=== PATIENT | female | born 1955 | race Hispanic/Latino ===

== ENCOUNTER 2025-05-31 13:22 | Observation (INO) | payer OTHER, MEDICAID ==
[~2025-05-31] VITALS: Ht 152.4 cm; Wt 77.4 kg
--- NOTE | 2025-05-31 13:42 | EKG ---
[facility] Test Date: 2025-05-31 Test Time: 13:34:49 Pat Name: JOJO MASTERS Department: EDH Room: ED Gender: F Vamp Creaser: [id number] Requested By: LAZ BALTAZAR Order Number: [id number] Reading MD: Amanuel Charles Measurements Intervals [place] Rate: 90 P: 11 ME: 127 QRS: 19 QRSD: 150 T: 27 QT: 400 QTc: 489 Interpretive Statements Sinus rhythm Right bundle branch block No previous ECG available for comparison Electronically Signed On 05-31-2025 16:33:40 EDGE WORKER by Amanuel Charles Please click the below link to view image of tracing.
[2025-05-31 13:50] LABS: IMMATURE GRANULOCYTE ABSOLUTE 0.02 K/uL (0-1); NUCLEATED RED BLOOD CELLS 0.0 % (0.0-0.19); PLATELET COUNT (AUTO) 426 K/uL (130-400); RED BLOOD CELL COUNT(AUTO) 5.27 MIL/uL (4.00-5.50); RED CELL DISTRIBUTION WIDTH 13.1 % (11.0-15.5); WHITE BLOOD COUNT (AUTO) 9.1 K/uL (4.8-10.8)
[2025-05-31 13:53] LABS: APPEARANCE,URINE CLEAR (CLEAR); GLUCOSE, URINE (UA) >=1000 mg/dL (NEGATIVE); LEUKOCYTE ESTERASE ,URINE 250 Leu/uL (NEGATIVE); NITRATE,URINE NEGATIVE (NEGATIVE); OCCULT BLOOD,URINE NEGATIVE (NEGATIVE)
[2025-05-31 13:56] LABS: ADD UA MICROSCOPIC YES
[2025-05-31 13:57] LABS: CREATININE 1.1 mg/dL (0.5-1.0); GLOMERULAR FILTR. RATE CALC 54.0 mL/min (>90); GLUCOSE,RANDOM 159.0 mg/dL (70-105); SODIUM SERUM 134.0 mmol/L (136-145); UREA NITROGEN, BLOOD 20.0 mg/dL (7-18)
[2025-05-31 13:58] LABS: NON-SQUAMOUS EPITHELIAL CELL 2 /HPF (0-2); SQUAMOUS EPITHELIAL CELL,UR FEW /HPF (0-2)
[2025-05-31 14:01] LABS: INR 0.97 (0.85-1.15)
[2025-05-31 14:02] LABS: CREATINE KINASE, TOTAL 52.0 U/L (21-232)
[2025-05-31 14:09] LABS: SARS-CoV-2, RNA, NAAT NEGATIVE SARS CoV-2 (NEGATIVE)
[2025-05-31 14:15] LABS: INFLUENZA TYPE A Negative For Type A (NEGATIVE); INFLUENZA TYPE B Negative For Type B (NEGATIVE)
--- NOTE | 2025-05-31 15:37 | ERN ---
General Chief Complaint: Shortness of Breath Stated Complaint: SOB Time Seen by MD: 13:24 Source: patient, family History of Present Illness Initial Comments PATIENT IS A 70-YEAR-OLD FEMALE COMING IN WITH MULTIPLE COMPLAINTS. PER PATIENT SHE HAS BEEN FEELING GENERALIZED BODY WEAKNESS CHEST PRESSURE SHORTNESS OF BREATH AND FEELS VERY ANXIOUS. PER FAMILY MEMBERS AT BEDSIDE THIS IS AN ONGOING EVENT WHICH HAS BEEN GOING ON FOR SEVERAL YEARS. IN THE LAST COUPLE OF DAYS SHE HAS FELT EVEN WORSE. Allergies: Coded Allergies: No Known Drug Allergies (Unverified Allergy, Unknown, 05/31/25) Past Medical History Past Medical History: Depression, Diabetes-Type II, High Cholesterol, Hypertension Past Surgical History: Appendectomy, Cholecystectomy ROS Dictation CONSTITUTIONAL: NO CHILLS, NO FEVER, NO WEAKNESS, NO DIAPHORESIS, NO MALAISE. HEAD/FACE: NO SIGNS OF TRAUMA. EENT: NO EYE PAIN, NO BLURRED VISION, NO TEARING, NO DOUBLE VISION, NO EAR PAIN, NO EAR DISCHARGE, NO NOSE PAIN, NO NASAL CONGESTION, NO THROAT PAIN, NO THROAT SWELLING, NO MOUTH PAIN. RESPIRATORY: NO COUGH, NO ORTHOPNEA, SOB, NO STRIDOR, NO WHEEZING. CARDIOVASCULAR: CHEST PAIN, NO EDEMA, NO PALPITATIONS, NO SYNCOPE. GASTROINTESTINAL/ABDOMINAL: NO ABDOMINAL PAIN, NO CONSTIPATION, NO DIARRHEA, NO NAUSEA, NO VOMITING. GENITOURINARY: NO ABNORMAL DISCHARGE, NO DYSURIA, NO FREQUENT URINATION, NO HEMATURIA. NO COMPLAINTS OF PAIN IN THE GENITALS. MUSCULOSKELETAL: NO BACK PAIN, NO GOUT, NO JOINT PAIN, NO JOINT SWELLING, NO MUSCLE PAIN, NO MUSCLE STIFFNESS, NO NECK PAIN. INTEGUMENTARY: NO CHANGE IN COLOR, NO CHANGE IN HAIR/NAILS, NO DRYNESS, NO LESION, NO LUMPS, NO RASH. NEUROLOGICAL/PSYCH: NO ANXIETY, NOT DEPRESSED, NO EMOTIONAL PROBLEM, NO HEADACHE, NO NUMBNESS, NO PRE-EXISTING DEFICIT, NO HISTORY OF SEIZURES, NO TREMORS, NO WEAKNESS. HEMATOLOGIC/LYMPHATIC: NOT ANEMIC, NO HISTORY OF BLOOD CLOTS, NO APPARENT BLEEDING, NO BRUISING, GLANDS NOT SWOLLEN. ALL SYSTEMS NEGATIVE, EXCEPT NOTED. Physical Exam Physical Exam Dictation VITAL SIGNS: REVIEWED. GENERAL APPEARANCE: ALERT, ORIENTED X3, ACUTE DISTRESS, OBESE. HEAD AND FACE: NON-TRAUMATIC. EYES: PERRL, PINK CONJUNCTIVAS, EYELID NO TRAUMA, ANTERIOR CHAMBER CLEAR. EARS: PINNAS INTACT AND NO SIGNS OF TRAUMA OR ERYTHEMA. EAR CANALS CLEAR AND NO DISCHARGE. TMS NO ERYTHEMA. NOSE: NO DISCHARGE, NO BLEEDING. OROPHARYNX: MOUTH NORMAL, TEETH NO CARIES, TONGUE PINK. PHARYNX CLEAR, NO ERYTHEMA. TONSILS NO EXUDATES, NO ABSCESSES NOTED. MUCOUS MEMBRANE MOIST. NECK: SUPPLE, NON-TENDER, NO THYROMEGALY, NO MASSES, NO JVD, NO BRUITS. BREAST: DEFERRED. CHEST: NO TENDERNESS, NO CREPITUS, NO PARADOXICAL MOVEMENT, NO RETRACTIONS. LUNGS: CLEAR, WELL-VENTILATED, SYMMETRIC, NO RALES, NO WHEEZING, NO RHONCHI, NO STRIDOR, GOOD BREATH SOUNDS BILATERALLY. HEART: REGULAR RATE, REGULAR RHYTHM, NO MURMUR, NO GALLOPS. VASCULAR: NO PERIPHERAL EDEMA. ABDOMEN: SOFT, POSITIVE BOWEL SOUNDS, NONDISTENDED, NO GUARDING, NONTENDER, NO REBOUND, NO MASSES NO HEPATOMEGALY, NO SPLENOMEGALY, NO MICHELLE'S SIGN, NO HERNIAS. RECTAL: DEFERRED. GENITAL: DEFERRED. NEUROLOGICAL: NORMAL SPEECH, GROSS MOTOR FUNCTION INTACT, GROSS SENSORY FUNCTION INTACT. MUSCULOSKELETAL: NECK NONTENDER, FULL RANGE OF MOTION, BACK NONTENDER, FULL RANGE OF MOTION. EXTREMITIES: NONTENDER, FULL RANGE OF MOTION. SKIN: COLOR PINK, DRY, NO TURGOR, NO RASH, NO LACERATIONS, NO ABRASIONS, NO CONTUSIONS. LYMPHATICS: DEFERRED. Results Laboratory and Microbiology Lab and Micro Result Laboratory Tests Test 05/31/25 13:33 05/31/25 13:39 Influenza Type A Antigen Negative For Type A Influenza Type B Antigen Negative For Type B SARS-CoV-2, RNA, NAAT NEGATIVE SARS CoV-2 White Blood Count 9.1 K/uL (4.8-10.8) Red Blood Count 5.27 MIL/uL (4.00-5.50) Hemoglobin 15.5 g/dL (12.0-16.0) Hematocrit 45.9 % (36-48) Mean Corpuscular Volume 87.1 fL (79-99) Mean Corpuscular Hemoglobin 29.4 pg (27.0-33.0) Mean Corpuscular Hemoglobin Concent 33.8 g/dL (32.0-36.0) Red Cell Distribution Width 13.1 % (11.0-15.5) Platelet Count 426 K/uL (130-400) H Mean Platelet Volume 9.5 fL (7.5-10.5) Immature Granulocyte % (Auto) 0.2 % (0-1) Neutrophils (%) (Auto) 58.8 % (40.0-77.0) Lymphocytes (%) (Auto) 31.9 % (21.0-51.0) Monocytes (%) (Auto) 6.8 % (3.0-13.0) Eosinophils (%) (Auto) 1.5 % (0.0-8.0) Basophils (%) (Auto) 0.8 % (0.0-5.0) Neutrophils # (Auto) 5.3 K/uL (1.8-7.7) Lymphocytes # (Auto) 2.9 K/uL (1.0-4.8) Monocytes # (Auto) 0.6 K/uL (0.1-1.0) Eosinophils # (Auto) 0.14 K/uL (0.00-0.70) Basophils # (Auto) 0.07 K/uL (0.00-0.20) Absolute Immature Granulocyte (auto 0.02 K/uL (0-1) Nucleated Red Blood Cells 0.0 % (0.0-0.19) Prothrombin Time 10.3 SEC (9.6-11.6) Prothromb Time International Ratio 0.97 (0.85-1.15) Activated Partial Thromboplast Time 26.9 SEC (26.3-35.5) Urine Color LIGHT-YELLOW (YELLOW) Urine Appearance CLEAR (CLEAR) Urine pH 5.5 (5.0-8.0) Urine Specific [place] 1.017 (1.001-1.031) Urine Protein NEGATIVE mg/dL (NEGATIVE) Urine Glucose (UA) >=1000 mg/dL (NEGATIVE) H Urine Ketones 40 mg/dL (NEGATIVE) H Urine Occult Blood NEGATIVE (NEGATIVE) Urine Nitrate NEGATIVE (NEGATIVE) Urine Bilirubin NEGATIVE mg/dL (NEGATIVE) Urine Urobilinogen 0.2 mg/dL (0.2-1.0) Urine Leukocyte Esterase 250 Keegan/uL (NEGATIVE) H Urine RBC 6-10 /HPF (0-1) H Urine WBC 11-25 /HPF (0-1) H Urine Squamous Epithelial Cells FEW /HPF (0-2) Urine Non-Squamous Epithelial Cells 2 /HPF (0-2) Urine Bacteria None /HPF (None Seen) Sodium Level 134 mmol/L (136-145) L Potassium Level 3.9 mmol/L (3.5-5.1) Chloride Level 97 mmol/L (101-111) L Carbon Dioxide Level 19 mmol/L (21-32) L Blood Urea Nitrogen 20 mg/dL (7-18) H Creatinine 1.1 mg/dL (0.5-1.0) H Glomerular Filtration Rate Calc 54 mL/min (>90) Random Glucose 159 mg/dL (70-105) H Total Calcium 8.9 mg/dL (8.5-10.1) Magnesium Level 1.90 mg/dL (1.80-2.40) Total Creatine Kinase 52 U/L (21-232) Troponin I High Sensitivity 11 ng/L (4-50) B-Type Natriuretic Peptide 34 pg/mL (0-100) Labs Reviewed?: Yes EKG/XRAY/US/CT/MRI EKG Comment 05/31/2025 TIME 1:34 P.M. VENTRICULAR RATE [address] WAVE ELEVATION OR DEPRESSION MDM MDM: DIFFERENTIAL DIAGNOSIS: URINARY TRACT INFECTION, ANXIETY, DEHYDRATION, DREA, RATIONALE: TESTS CONSIDERED AND ORDERED SECONDARY TO SHARED DECISION MAKING INCLUDE: LABS, ECG AND RADIOLOGY PREVIOUS OUTSIDE RECORDS REVIEWED: OLD ER VISITS. RISK OF COMPLICATION AND/OR MORBIDITY OR MORTALITY OF PATIENT MANAGEMENT: NONE MEDICATIONS-PER MEDICATION RECONCILIATION NEED FOR HOSPITALIZATION: PATIENT DOES MEET CRITERIA FOR HOSPITALIZATION. NEED FOR EMERGENCY MAJOR/MINOR SURGERY: NO THERE ARE NO SOCIAL CONCERNS WITH THIS PATIENT. PRESCRIPTION DRUG MANAGEMENT PRESCRIPTIONS WILL INCLUDE SYMPTOMATIC CARE PATIENT'S PRIOR EXTERNAL MEDICAL RECORDS FROM OTHER ER VISITS WERE REVIEWED BY ME INDICATED. PRIOR TESTING AND RESULTS FROM PREVIOUS VISITS WERE REVIEWED. PRIOR TESTS WERE TAKEN INTO ACCOUNT WITH MEDICAL DECISION MAKING AND RESOURCE UTILIZATION, INDEPENDENT HISTORIAN/HISTORIANS WERE USED TO OBTAIN COMPLETE MEDICAL HISTORY. I INDEPENDENTLY INTERPRETED THE TEST THAT WERE PERFORMED, RESULTS WERE REVIEWED BY ME AND CONSIDERED FINDINGS ON RADIOLOGY IF ORDERED. MEDICAL MANAGEMENT AND EXAMINATION INTERPRETATION DISCUSSIONS WERE HAD BY ME WITH OTHER QUALIFIED HEALTHCARE PROFESSIONALS INDICATED FOR THE PATIENT'S CARE. PATIENT WILL BE ADMITTED UNDER THE CARE OF HOSPITALIST GROUP FOR ONGOING MANAGEMENT. ED Course Orders Procedure Category Date Status Time Cbc With Differential LAB 05/31/25 Complete 13:27 Prothrombin Time With LAB 05/31/25 Complete INR 13:27 Chest 1vw RAD 05/31/25 Resulted 13:27 12 Lead Ekg Tracing- EKG 05/31/25 Complete Technical 13:27 Magnesium LAB 05/31/25 Complete 13:27 Creatine Kinase, Total LAB 05/31/25 Complete 13:27 Troponin I High LAB 05/31/25 Complete Sensitivity 13:27 Urinalysis Profile LAB 05/31/25 Complete 13:27 Partial LAB 05/31/25 Complete Thromboplastin Time 13:27 Basic Metabolic Panel LAB 05/31/25 Complete 13:27 B-Type Natriuretic LAB 05/31/25 Complete Peptide 13:27 Covid Rna Naat LAB 05/31/25 Complete 13:27 Influenza Type A & B, LAB 05/31/25 Complete Rapid 13:27 Culture Urine KOKI 05/31/25 In Process 13:57 Diazepam 5 Mg/Ml 2 Ml PHA 05/31/25 Complete Syg (Valium 5 Mg/M 14:30 Current Medications Medications (Trade) Dose Ordered Sig/Chapito Route PRN Reason Start Time Stop Time Status Last Admin Dose Admin Diazepam (VALium 5 MG/ML 2 ML SYG) 5 mg ONCE ONCE IM 05/31/25 14:30 05/31/25 14:31 DC 05/31/25 14:37 Vital Signs Date Time Temp Pulse Resp B/P (MAP) Pulse Ox O2 Delivery O2 Flow Rate FiO2 05/31/25 13:24 98.1 97 20 139/89 100 Room Air DX & DISP Disposition: Inpatient Decision to Admit Time: 15:49 Departure Impression: Primary Impression: UTI (urinary tract infection) Additional Impressions: Anxiety, Dehydration, DREA (acute kidney injury) Condition: Stable Referrals: HAYDE BERRIOS MD (PCP) LAZ BALTAZAR MD May 31, 2025 15:37
--- NOTE | 2025-05-31 15:43 | HMCIMG ---
EXAM: CR Chest, 1 View. CLINICAL HISTORY: CP COMPARISON: None provided. FINDINGS: LUNGS: The lungs show no infiltrate or other acute finding. PLEURAL SPACES: No evidence of pleural effusion or pneumothorax. MEDIASTINUM: The cardiomediastinal silhouette is within normal limits. BONES: No acute osseous abnormality. IMPRESSION: No acute cardiopulmonary pathology is evident. /[place]
[2025-05-31] MEDS ORDERED: GLUCAGON 1MG KIT 1 MG ML IM PRN (16:00)
[2025-05-31] MEDS ORDERED: DEXTROSE 50%-WATER 50 ML DISP.SYRIN IV PRN (16:00)
[2025-05-31] MEDS ORDERED: PoTASSium chl 10% ELIXIR 20MEQ 20 MEQ/15 ML UDCUP PO PRN (16:00)
--- NOTE | 2025-05-31 16:20 | HP ---
[facility] Date of Service: May 31, 2025 Time of Service: 16:13 PCP: Admitting: Dr. Vinson Allergies: No Allergy Information Available, No Known Drug Allergies HISTORY OF PRESENT ILLNESS: [ Patient 70 years old female with a past medical history of depression, diabetes, hyperlipidemia, hypertension, appendectomy, cholecystectomy, who came to emergency department with multiple patient stated that last couple of the ceiling week, overall generalized body weakness she also was complaining of some chest her shortness of breaths and feeling of anxious. Patient did stated that she is a history of the depression. As per family members who has been off the bedside they being seen that all her symptoms has been going for the past several years. Today patient decided to come to the hospital all dose symptoms has been progressively worse] Most recent vital signs temperature 98.1 pulse 97 respiration 20 blood pressure 139/89 patient is on room air satting 100%. Sodium 134 potassium 3.9 CO2 19 BUN 20 creatinine 1.1 GFR four random glucose 159 magnesium 1.9 CK 52 troponin negative x1 BNP 34 COVID negative. Influenza A negative influenza B negative urinalysis positive for leukocytosis Chest x-ray negative Patient will be admitted under hospitalist care for further evaluation/recommendations. A.m. Labs patient and family members at the bedside agree with the further plan and admission REVIEW OF SYSTEMS CONSTITUTIONAL: Denies fevers, chills, or night sweats. No unintentional weight loss reported. Complains of generalized body weakness NEUROLOGICAL: Denies headache, amaurosis fugax, motor weakness, sensory deficit, vertigo/spinning sensation, gait abnormalities, or tremors. ENT: No hearing loss, otalgia, otorrhea, rhinitis, rhinorrhea, hoarseness, or sore throat. CARDIOVASCULAR: Denies any exertional angina, dyspnea on exertion, orthopnea, paroxysmal nocturnal dyspnea, palpitations, life-threatening arrhythmias, claudication. Complains of chest pressure PULMONARY: Denies any cough, phlegm/sputum, hemoptysis, pleuritic chest pain. Complains of shortness of breaths SLEEP: Denies morning headaches, daytime somnolence or napping. Denies difficulty falling asleep, staying asleep, waking from sleep. Denies knowledge of snoring. GASTROINTESTINAL: Denies any type of dysphagia to either liquids or solids. Denies nausea, vomiting, pyrosis, early satiety, abdominal pain, diarrhea, constipation, or changes in stool consistency or caliber. Denies coffee-ground emesis, hematemesis, hematochezia, or melanotic stools. GENITOURINARY: Denies frequency, urgency, nocturia, hematuria or incontinence (Storage/Irritative symptoms.) Low urinary stream, straining to void, urinary intermittency or hesitancy, splitting of the voiding stream, terminal dribbling. ENDOCRINOLOGIC: Denies polyuria, polydipsia, polyphagia or heat/cold intolerances. HEMATOLOGIC: Denies thrombophilia/previous clots, or coagulopathy/bleeding disorders. ONCOLOGIC: Denies personal history of malignancy. DERMATOLOGIC: Denies rashes or pruritus. PSYCHIATRIC: Denies any suicidal or homicidal ideation. Denies hallucinations. PAST MEDICAL HISTORY: [ Depression, diabetes, hyperlipidemia, hypertension ] PAST SURGICAL HISTORY: [ Appendectomy, cholecystectomy ] PAST SOCIAL HISTORY: [ Patient denies any ] FAMILY HISTORY: [ Patient lives at home with the family members. Patient requires one-person assist for ambulation with a walker ] Coded Allergies: No Known Drug Allergies (Unverified Allergy, Unknown, 05/31/25) PHYSICAL EXAM GENERAL APPEARANCE: The patient is awake, alert, and oriented, in no acute cardiopulmonary distress. NEUROLOGICAL: Cranial nerves II-XII grossly intact. Motor is 5/5 in bilateral upper and lower extremities proximal to distal. No sensory deficits. HEENT: Face is symmetric. Pupils are equal and reactive. Extraocular movements are intact. NECK: Supple. No JVD. No thyromegaly. No submental, submandibular, pre- /postauricular, occipital or supraclavicular lymphadenopathy. CHEST: Normal chest expansion. No Telemetry. LUNGS: Absence of any rales, rhonchi or any wheezing. CARDIOVASCULAR: Regular. S1 and S2 normal. No appreciable rubs, murmurs or gallops. ABDOMEN: Soft, nontender, and nondistended. There is no rebound, voluntary guarding, or rigidity. : Deferred. No Garner. EXTREMITIES: Non-edematous and not cyanotic. No clubbing. Good capillary refill. SKIN: No skin breakdown. Vital Sign (Last 24 Hours) 05/31/25 16:05 Temp 97.9 Pulse 79 Resp 30 B/P (MAP) 179/87 Pulse Ox 100 O2 Delivery Room Air* O2 Flow Rate 0 FiO2 21 LABS: Laboratory: Test 05/31/25 13:39 05/31/25 13:33 Range/Units White Blood Count 9.1 4.8-10.8 K/uL Red Blood Count 5.27 4.00-5.50 MIL/uL Hemoglobin 15.5 12.0-16.0 g/dL Hematocrit 45.9 36-48 % Mean Corpuscular Volume 87.1 79-99 fL Mean Corpuscular Hemoglobin 29.4 27.0-33.0 pg Mean Corpuscular Hemoglobin Concent 33.8 32.0-36.0 g/dL Red Cell Distribution Width 13.1 11.0-15.5 % Platelet Count 426 H 130-400 K/uL Mean Platelet Volume 9.5 7.5-10.5 fL Immature Granulocyte % (Auto) 0.2 0-1 % Neutrophils (%) (Auto) 58.8 40.0-77.0 % Lymphocytes (%) (Auto) 31.9 21.0-51.0 % Monocytes (%) (Auto) 6.8 3.0-13.0 % Eosinophils (%) (Auto) 1.5 0.0-8.0 % Basophils (%) (Auto) 0.8 0.0-5.0 % Neutrophils # (Auto) 5.3 1.8-7.7 K/uL Lymphocytes # (Auto) 2.9 1.0-4.8 K/uL Monocytes # (Auto) 0.6 0.1-1.0 K/uL Eosinophils # (Auto) 0.14 0.00-0.70 K/uL Basophils # (Auto) 0.07 0.00-0.20 K/uL Absolute Immature Granulocyte (auto 0.02 0-1 K/uL Nucleated Red Blood Cells 0.0 0.0-0.19 % Prothrombin Time 10.3 9.6-11.6 SEC Prothromb Time International Ratio 0.97 0.85-1.15 Activated Partial Thromboplast Time 26.9 26.3-35.5 SEC Urine Color LIGHT-YELLOW YELLOW Urine Appearance CLEAR CLEAR Urine pH 5.5 5.0-8.0 Urine Specific [place] 1.017 1.001-1.031 Urine Protein NEGATIVE NEGATIVE mg/dL Urine Glucose (UA) >=1000 H NEGATIVE mg/dL Urine Ketones 40 H NEGATIVE mg/dL Urine Occult Blood NEGATIVE NEGATIVE Urine Nitrate NEGATIVE NEGATIVE Urine Bilirubin NEGATIVE NEGATIVE mg/dL Urine Urobilinogen 0.2 0.2-1.0 mg/dL Urine Leukocyte Esterase 250 H NEGATIVE Keegan/uL Urine RBC 6-10 H 0-1 /HPF Urine WBC 11-25 H 0-1 /HPF Urine Squamous Epithelial Cells FEW 0-2 /HPF Urine Non-Squamous Epithelial Cells 2 0-2 /HPF Urine Bacteria None None Seen /HPF Sodium Level 134 L 136-145 mmol/L Potassium Level 3.9 3.5-5.1 mmol/L Chloride Level 97 L 101-111 mmol/L Carbon Dioxide Level 19 L 21-32 mmol/L Blood Urea Nitrogen 20 H 7-18 mg/dL Creatinine 1.1 H 0.5-1.0 mg/dL Glomerular Filtration Rate Calc 54 >90 mL/min Random Glucose 159 H 70-105 mg/dL Total Calcium 8.9 8.5-10.1 mg/dL Magnesium Level 1.90 1.80-2.40 mg/dL Total Creatine Kinase 52 21-232 U/L Troponin I High Sensitivity 11 4-50 ng/L B-Type Natriuretic Peptide 34 0-100 pg/mL Influenza Type A Antigen Negative For Type A NEGATIVE Influenza Type B Antigen Negative For Type B NEGATIVE SARS-CoV-2, RNA, NAAT NEGATIVE SARS CoV-2 NEGATIVE Current Medications Medications (Trade) Dose Ordered Sig/Chapito Route PRN Reason Start Time Stop Time Status Last Admin Dose Admin Dextrose (D50w) 50 ml AD PRN IV HYPOGLYCEMIA PROTOCOL 05/31/25 16:00 06/30/25 15:59 Glucagon (Glucagon 1mg Kit) 1 mg AD PRN IM HYPOGLYCEMIA PROTOCOL 05/31/25 16:00 06/30/25 15:59 Insulin Human Regular (humuLIN R 100 UNIT/ML 3ML) INSULIN SLIDING SCAL... ACHS SQ 05/31/25 16:30 06/30/25 16:29 Magnesium Sulfate 50 ml @ 0 mls/hr PROTOCOL PRN IV other 05/31/25 16:00 06/30/25 15:59 Potassium Chloride 100 ml @ 100 mls/hr AD PRN IV POTASSIUM PROTOCOL 05/31/25 16:00 06/30/25 15:59 Potassium Chloride (K-Dur/Klor-Con 20meq) 20 meq AD PRN PO POTASSIUM PROTOCOL 05/31/25 16:00 06/30/25 15:59 Potassium Chloride (KCl 10% Elixir 20meq/15ml) 20 meq AD PRN PO POTASSIUM PROTOCOL 05/31/25 16:00 06/30/25 15:59 DIAGNOSTICS / RADIOLOGY: [ ] ASSESSMENT: [ Acute complicated cystitis POA Acute dehydration POA Acute kidney injury POA Electrolyte imbalance hyponatremia Na 134 POA Uncontrolled hypertension POA Uncontrolled diabetes mellitus type 2 with hypoglycemia POA Hyperlipidemia POA Depression POA History of appendectomy History of cholecystectomy] PLAN: [ Patient admitted to medical floor Chest x-ray pending Initiate hyper and hypoglycemia protocol Initiate hypokalemia protocol Initiate hypomagnesemia protocol Blood culture pending I's and o's pending PRN medications Rocephin 2 g for UTI Urine culture pending A.m. labs Cardiac diet PT for evaluation Case management for disposition ADVANCED CARE PLANNING 1. Which of the following were discussed? Hospice Care - Yes / No Therapeutic options - Yes / No Advance Directives - Yes / No Other discussions - 2. Discussed with who? Patient and family members 3. Voluntary nature of this service was explained to the patient? Yes / No 4. Amount of time spent - _ more than 35 minutes 5. Reviewed by Physician? (if this service was performed by NPP) Yes / No ATTESTATION BY PHYSICIAN I have seen and examined the patient. I reviewed the documentation, medical decision making, and treatment plan as noted by the mid-level provider above. I agree with the findings and plan of care. Jabier Vinson IV, MD, KATARZYNA B WOOL SACKER May 31, 2025 16:20
[2025-05-31] MEDS ORDERED: NITROGLYCERIN 0.4 MG SL TAB SL PRN (16:30)
[2025-05-31] MEDS ORDERED: MAG/ALUM/SIMETH 30 ML UDCUP PO PRN (16:30)
[2025-05-31] MEDS ORDERED: guaiFENesin-DM 200/20MG 10ML PO PRN (16:30)
[2025-05-31] MEDS ORDERED: FAMOTIDINE 20MG VIAL IV PRN (16:30)
[2025-05-31] MEDS: 0.9%NACL 1000ML 1,000 ML IV SCH (16:57)
[2025-05-31] MEDS ORDERED: OMEP20CA12 PO (17:46)
[2025-05-31] MEDS ORDERED: AMLO-257 PO (17:46)
[2025-05-31] MEDS ORDERED: ALPR-409 PO (17:46)
[2025-05-31] MEDS ORDERED: HYDR-3421 PO (17:46)
[2025-05-31] MEDS ORDERED: FINE20TA PO (17:46)
[2025-05-31] MEDS ORDERED: BUSP15TA3 PO (17:46)
[2025-05-31] MEDS ORDERED: LORA0.5T83 PO (17:46)
[2025-05-31] MEDS ORDERED: NITR100C PO (17:46)
[2025-05-31] MEDS ORDERED: GABA-534 PO (17:46)
[2025-05-31] MEDS ORDERED: LEVO25CA5 PO (17:46)
[2025-05-31] MEDS ORDERED: LOSA50TA64 PO (17:46)
[2025-05-31] MEDS ORDERED: EMPA25TA PO (17:46)
[2025-05-31] MEDS ORDERED: METO-391 PO (17:46)
[2025-05-31] MEDS ORDERED: CALC-1106 PO (17:46)
--- NOTE | 2025-05-31 17:59 | NUR ---
REPORT GIVEN TO CHARLOTTE FONTENOT, COLLEEN SENT WITH PATIENT
[2025-05-31 19:02] VITALS: BP 148/86; PULSE 86; RESP 20; TEMP 98.1
[2025-05-31 19:35] VITALS: BP 143/82; PULSE 76; RESP 20; TEMP 97.6
[2025-05-31 20:00] VITALS: O2SAT 100
[2025-05-31] MEDS: FAMOTIDINE 20MG VIAL IV SCH (21:50)
[2025-05-31 23:30] VITALS: BP 123/67; PULSE 91; RESP 19; TEMP 97.7
[2025-06-01] VITALS (9 sets, daily range): BP systolic 111–137; BP diastolic 61–89; PULSE 74–101; RESP 16–19; TEMP 97.8–98.4; O2SAT 0
[2025-06-01 03:49] LABS: IMMATURE GRANULOCYTE ABSOLUTE 0.02 K/uL (0-1); NUCLEATED RED BLOOD CELLS 0.0 % (0.0-0.19); PLATELET COUNT (AUTO) 291 K/uL (130-400); RED BLOOD CELL COUNT(AUTO) 4.46 MIL/uL (4.00-5.50); RED CELL DISTRIBUTION WIDTH 13.2 % (11.0-15.5); WHITE BLOOD COUNT (AUTO) 5.5 K/uL (4.8-10.8)
[2025-06-01 04:20] LABS: ASPARTATE AMINOTRANSFERASE 14 U/L (10-37); CREATINE KINASE, TOTAL 40 U/L (21-232); CREATININE 0.8 mg/dL (0.5-1.0); GLOMERULAR FILTR. RATE CALC 79 mL/min (>90); GLUCOSE,RANDOM 104 mg/dL (70-105); SODIUM SERUM 136 mmol/L (136-145); TOTAL PROTEIN, SERUM 6.5 g/dL (6.0-8.3); UREA NITROGEN, BLOOD 15 mg/dL (7-18)
--- NOTE | 2025-06-01 05:08 | HMCIMG ---
EXAM: CR Chest, single view. CLINICAL HISTORY: Congestion COMPARISON: Prior same-day chest radiograph. FINDINGS: The lungs show no infiltrate or other acute findings. No pleural effusion or pneumo horax. The cardiomediastinal silhouette is within normal limits. No acute osseous abnormality. Mild degenerative changes in the mid and lower thoracic spine. Mild tortuosity of the descending thoracic aorta. IMPRESSION: No acute cardiopulmonary pathology is evident. Compared to the prior study, there is no significant interval change. /[place]
[2025-06-01] MEDS: PoTASSium chloRIDE 20MEQ ER 20 MEQ ERTAB PO PRN (05:33)
[2025-06-01] MEDS: MAGNESIUM 2GM PREMIX 50ML 50 ML IV PRN (05:34)
[2025-06-01] MEDS ORDERED: ALPRAZOLAM 0.25 MG PO PRN (10:30)
--- NOTE | 2025-06-01 13:24 | PN ---
[facility] PROGRESS NOTE Date of Service: Jun 01, 2025 Time of Service: 13:22 SUBJECTIVE: 06/01 PATIENT IS SEEN AND EXAMINED AT BEDSIDE, CASE DISCUSSED WITH THE RN, NO ACUTE EVENTS OVERNIGHT, PATIENT GETTING SUPPORTIVE CARE WITH IV FLUIDS, IV ANTIBIOTICS AT THE TIME MY VISIT, BP 134/71, AFEBRILE, SATURATING NORMAL ON ROOM AIR. AT THE TIME OF THE MY VISIT SHE IS AWAKE, STATED THAT SHE FEELS WEAK, ALERT ORIENTED X3, DENIES CHEST PAIN, NO SHORTNESS A BREATH, NO NAUSEA, NO VOMITING, NO ABDOMINAL DISCOMFORT. WE WILL CONTINUE ANTIBIOTICS FOR ADDITIONAL 24 HOURS, ANTICIPATE DISCHARGE HOME TOMORROW. SON AT BEDSIDE, UPDATED, ALL QUESTIONS ANSWERED. IN AGREEMENT. REVIEW OF SYSTEMS CONSTITUTIONAL: Denies fevers, chills, or night sweats. No unintentional weight loss reported. Complains of generalized body weakness NEUROLOGICAL: Denies headache, amaurosis fugax, motor weakness, sensory deficit, vertigo/spinning sensation, gait abnormalities, or tremors. ENT: No hearing loss, otalgia, otorrhea, rhinitis, rhinorrhea, hoarseness, or sore throat. CARDIOVASCULAR: Denies any exertional angina, dyspnea on exertion, orthopnea, paroxysmal nocturnal dyspnea, palpitations, life-threatening arrhythmias, claudication. Complains of chest pressure PULMONARY: Denies any cough, phlegm/sputum, hemoptysis, pleuritic chest pain. Complains of shortness of breaths SLEEP: Denies morning headaches, daytime somnolence or napping. Denies difficulty falling asleep, staying asleep, waking from sleep. Denies knowledge of snoring. GASTROINTESTINAL: Denies any type of dysphagia to either liquids or solids. Denies nausea, vomiting, pyrosis, early satiety, abdominal pain, diarrhea, constipation, or changes in stool consistency or caliber. Denies coffee-ground emesis, hematemesis, hematochezia, or melanotic stools. GENITOURINARY: Denies frequency, urgency, nocturia, hematuria or incontinence (Storage/Irritative symptoms.) Low urinary stream, straining to void, urinary intermittency or hesitancy, splitting of the voiding stream, terminal dribbling. ENDOCRINOLOGIC: Denies polyuria, polydipsia, polyphagia or heat/cold intolerances. HEMATOLOGIC: Denies thrombophilia/previous clots, or coagulopathy/bleeding disorders. ONCOLOGIC: Denies personal history of malignancy. DERMATOLOGIC: Denies rashes or pruritus. PSYCHIATRIC: Denies any suicidal or homicidal ideation. Denies hallucinations. PHYSICAL EXAM GENERAL APPEARANCE: The patient is awake, alert, and oriented, in no acute cardiopulmonary distress. NEUROLOGICAL: Cranial nerves II-XII grossly intact. Motor is 5/5 in bilateral upper and lower extremities proximal to distal. No sensory deficits. HEENT: Face is symmetric. Pupils are equal and reactive. Extraocular movements are intact. NECK: Supple. No JVD. No thyromegaly. No submental, submandibular, pre- /postauricular, occipital or supraclavicular lymphadenopathy. CHEST: Normal chest expansion. No Telemetry. LUNGS: Absence of any rales, rhonchi or any wheezing. CARDIOVASCULAR: Regular. S1 and S2 normal. No appreciable rubs, murmurs or gallops. ABDOMEN: Soft, nontender, and nondistended. There is no rebound, voluntary guarding, or rigidity. : Deferred. No Garner. EXTREMITIES: Non-edematous and not cyanotic. No clubbing. Good capillary refill. SKIN: No skin breakdown. Vital Signs (last 8hr) Date Time Temp Pulse Resp B/P (MAP) Pulse Ox O2 Delivery O2 Flow Rate FiO2 06/01/25 13:08 98.2 95 16 124/71 97 Room Air 06/01/25 09:35 98.1 101 18 127/71 93 Room Air 06/01/25 08:06 98.1 101 18 127/71 Room Air 06/01/25 08:00 0 Room Air* 0 21 LABS: Laboratory: Test 06/01/25 11:36 06/01/25 03:27 05/31/25 13:39 05/31/25 13:33 Range/Units Whole Blood Glucose 131 H 70-110 MG/DL White Blood Count 5.5 # 4.8-10.8 K/uL Red Blood Count 4.46 4.00-5.50 MIL/uL Hemoglobin 13.2 12.0-16.0 g/dL Hematocrit 39.1 36-48 % Mean Corpuscular Volume 87.7 79-99 fL Mean Corpuscular Hemoglobin 29.6 27.0-33.0 pg Mean Corpuscular Hemoglobin Concent 33.8 32.0-36.0 g/dL Red Cell Distribution Width 13.2 11.0-15.5 % Platelet Count 291 # 130-400 K/uL Mean Platelet Volume 9.6 7.5-10.5 fL Immature Granulocyte % (Auto) 0.4 0-1 % Neutrophils (%) (Auto) 53.2 40.0-77.0 % Lymphocytes (%) (Auto) 31.2 21.0-51.0 % Monocytes (%) (Auto) 11.4 3.0-13.0 % Eosinophils (%) (Auto) 2.5 0.0-8.0 % Basophils (%) (Auto) 1.3 0.0-5.0 % Neutrophils # (Auto) 2.9 1.8-7.7 K/uL Lymphocytes # (Auto) 1.7 1.0-4.8 K/uL Monocytes # (Auto) 0.6 0.1-1.0 K/uL Eosinophils # (Auto) 0.14 0.00-0.70 K/uL Basophils # (Auto) 0.07 0.00-0.20 K/uL Absolute Immature Granulocyte (auto 0.02 0-1 K/uL Nucleated Red Blood Cells 0.0 0.0-0.19 % Sodium Level 136 136-145 mmol/L Potassium Level 3.8 3.5-5.1 mmol/L Chloride Level 104 101-111 mmol/L Carbon Dioxide Level 20 L 21-32 mmol/L Blood Urea Nitrogen 15 7-18 mg/dL Creatinine 0.8 0.5-1.0 mg/dL Glomerular Filtration Rate Calc 79 >90 mL/min Random Glucose 104 70-105 mg/dL Hemoglobin A1c 7.1 H 4.0-6.0 % Estimated Average Glucose (eAG) 157 H 70-126 mg/dL Lactic Acid Level 1.4 0.8-2.5 mmol/L Total Calcium 7.8 L 8.5-10.1 mg/dL Magnesium Level 1.80 1.80-2.40 mg/dL Total Bilirubin 0.3 0.2-1.0 mg/dL Direct Bilirubin 0.1 0.0-0.3 mg/dL Aspartate Amino Transf (AST/SGOT) 14 10-37 U/L Alanine Aminotransferase (ALT/SGPT) 14 12-78 U/L Alkaline Phosphatase 67 50-136 U/L Ammonia < 10 L 11-32 umol/L Total Creatine Kinase 40 # 21-232 U/L Troponin I High Sensitivity 14.7 4-50 ng/L B-Type Natriuretic Peptide 29 0-100 pg/mL Total Protein 6.5 6.0-8.3 g/dL Albumin 3.0 L 3.5-5.0 g/dL Amylase Level 22 L 25-115 U/L Lipase 17 16-77 U/L Procalcitonin < 0.05 L 0.05-0.5 ng/mL Thyroid Stimulating Hormone (TSH) 1.18 0.36-3.74 uIU/mL Free Thyroxine (T4) Direct 1.17 0.76-1.46 ng/dL Free Triiodothyronine (T3) pg/mL 1.98 L 2.18-3.98 pg/mL Prothrombin Time 10.3 9.6-11.6 SEC Prothromb Time International Ratio 0.97 0.85-1.15 Activated Partial Thromboplast Time 26.9 26.3-35.5 SEC Urine Color LIGHT-YELLOW YELLOW Urine Appearance CLEAR CLEAR Urine pH 5.5 5.0-8.0 Urine Specific Hurst 1.017 1.001-1.031 Urine Protein NEGATIVE NEGATIVE mg/dL Urine Glucose (UA) >=1000 H NEGATIVE mg/dL Urine Ketones 40 H NEGATIVE mg/dL Urine Occult Blood NEGATIVE NEGATIVE Urine Nitrate NEGATIVE NEGATIVE Urine Bilirubin NEGATIVE NEGATIVE mg/dL Urine Urobilinogen 0.2 0.2-1.0 mg/dL Urine Leukocyte Esterase 250 H NEGATIVE Keegan/uL Urine RBC 6-10 H 0-1 /HPF Urine WBC 11-25 H 0-1 /HPF Urine Squamous Epithelial Cells FEW 0-2 /HPF Urine Non-Squamous Epithelial Cells 2 0-2 /HPF Urine Bacteria None None Seen /HPF Influenza Type A Antigen Negative For Type A NEGATIVE Influenza Type B Antigen Negative For Type B NEGATIVE SARS-CoV-2, RNA, NAAT NEGATIVE SARS CoV-2 NEGATIVE Current Medications Medications (Trade) Dose Ordered Sig/Chapito Route PRN Reason Start Time Stop Time Status Last Admin Dose Admin Acetaminophen (TYLenol 325MG TAB) 650 mg Q4H PRN PO MILD PAIN (1-3) 05/31/25 16:30 06/30/25 16:29 Acetaminophen (TYLenol 325MG TAB) 650 mg Q6H PRN PO MILD PAIN (1-3) 05/31/25 16:30 05/31/25 16:15 DC Acetaminophen (TYLenol 325MG TAB) 650 mg Q6H PRN PO TEMPERATURE GREATER THAN 101.5 05/31/25 16:30 06/30/25 16:29 Al Hydroxide/Mg Hydroxide (MAALox PLUS 30ML) 30 ml Q6H PRN PO INDIGESTION 05/31/25 16:30 06/30/25 16:29 Amlodipine Besylate (NorvASC 5MG TAB) 5 mg DAILY PO 06/02/25 09:00 07/02/25 08:59 Buspirone HCl (BUspar) 15 mg TID PO 06/01/25 14:00 07/01/25 13:59 Ceftriaxone Sodium (Rocephin 2gm Inj) 2 gm Q24H IVPB 06/01/25 16:30 06/11/25 16:29 Dextrose (D50w) 50 ml AD PRN IV HYPOGLYCEMIA PROTOCOL 05/31/25 16:00 06/30/25 15:59 Diphenhydramine HCl (BENAdryl INJ) 25 mg Q6H PRN IV SEVERE ITCHING/RASH 05/31/25 16:30 06/30/25 16:29 Empaglifozin (Jardiance 25mg) 25 mg DAILY PO 06/02/25 09:00 07/02/25 08:59 Famotidine (Pepcid 20mg Vial) 20 mg BID PRN IV NAUSEA/VOMITING 05/31/25 16:30 05/31/25 16:15 DC Famotidine (Pepcid 20mg Vial) 20 mg Q24H IV 05/31/25 21:00 06/30/25 20:59 05/31/25 21:50 20 MG Gabapentin (NEURontin 300 MG CAP) 300 mg TID PO 06/01/25 14:00 07/01/25 13:59 Glucagon (Glucagon 1mg Kit) 1 mg AD PRN IM HYPOGLYCEMIA PROTOCOL 05/31/25 16:00 06/30/25 15:59 Guaifenesin/ Dextromethorphan (RobiTUSSin DM 200/20MG 10ML) 10 ml Q4H PRN PO COUGH 05/31/25 16:30 06/30/25 16:29 Heparin Sodium (Porcine) (HEParin 5,000 UNIT VIAL) 5,000 unit BID SQ 05/31/25 21:00 06/30/25 20:59 06/01/25 09:15 5,000 UNIT Home Med (Home Medication) DAILY PO 06/02/25 09:00 07/02/25 08:59 Home Med (Home Medication) DAILYBKFST PO 06/02/25 08:00 07/02/25 07:59 Hydralazine HCl (APRESOLine 20MG INJ) 10 mg Q6H PRN IV For:SBP above 160;DBP above 90 05/31/25 16:30 06/30/25 16:29 Hydroxyzine HCl (ATArax 25MG TAB) 25 mg TIDP PRN PO ANXIETY 06/01/25 10:30 07/01/25 10:29 Ibuprofen (moTRIN) 800 mg Q8H PRN PO MODERATE PAIN (4-6) 05/31/25 16:30 06/30/25 16:29 Insulin Human Regular (humuLIN R 100 UNIT/ML 3ML) INSULIN SLIDING SCAL... ACHS SQ 05/31/25 16:30 06/30/25 16:29 Ketorolac Tromethamine (toRADol) 15 mg Q8H PRN IV MODERATE PAIN (4-6) IF NPO 05/31/25 16:30 06/05/25 16:29 Lactulose (Constulose 20gm/ 30ml Udcup) 20 gm BID PRN PO CONSTIPATION 05/31/25 16:30 06/30/25 16:29 Levothyroxine Sodium (SYNTHroid 25MCG TAB) 25 mcg SYN PO 06/02/25 06:30 07/02/25 06:29 Lorazepam (AtiVAN) 0.5 mg [id number] PRN PO ANXIETY 06/01/25 10:30 07/01/25 10:29 Losartan Potassium (CozAAR 50 mg TAB) 50 mg DAILY PO 06/02/25 09:00 07/02/25 08:59 Magnesium Sulfate 50 ml @ 0 mls/hr PROTOCOL PRN IV other 05/31/25 16:00 06/30/25 15:59 06/01/25 05:34 25 MLS/HR Metoprolol Succinate (TopROL XL) 50 mg DAILY PO 06/02/25 09:00 07/02/25 08:59 Miscellaneous Medication (Alprazolam ) 0.25 mg TIDP PRN PO ANXIETY 06/01/25 10:30 06/01/25 10:59 DC Morphine Sulfate (morPHINE 2MG SYG) 1 mg Q4H PRN IVP SEVERE PAIN (7-10) IF NPO 05/31/25 16:30 06/07/25 16:29 Nitroglycerin (Nitrostat) 0.4 mg PROTOCOL PRN SL CHEST PAIN 05/31/25 16:30 06/30/25 16:29 Ondansetron HCl (zoFRAN 4MG INJ) 4 mg Q6H PRN IV NAUSEA/VOMITING 05/31/25 16:30 06/30/25 16:29 Oxycodone/ Acetaminophen (perCOCET) 1 tab Q6H PRN PO SEVERE PAIN (7-10) 05/31/25 16:30 06/07/25 16:29 06/01/25 09:12 1 TAB Potassium Chloride 100 ml @ 100 mls/hr AD PRN IV POTASSIUM PROTOCOL 05/31/25 16:00 06/30/25 15:59 Potassium Chloride (K-Dur/Klor-Con 20meq) 20 meq AD PRN PO POTASSIUM PROTOCOL 05/31/25 16:00 06/30/25 15:59 06/01/25 05:33 20 MEQ Potassium Chloride (KCl 10% Elixir 20meq/15ml) 20 meq AD PRN PO POTASSIUM PROTOCOL 05/31/25 16:00 06/30/25 15:59 Sodium Chloride 1,000 ml @ 100 mls/hr Q10H IV 05/31/25 16:30 06/01/25 12:52 DC 05/31/25 16:57 100 MLS/HR Zolpidem Tartrate (AmbIEN) 5 mg HS PRN PO INSOMNIA 05/31/25 16:30 06/30/25 16:29 05/31/25 21:50 5 MG DIAGNOSTICS / RADIOLOGY: [ ] ASSESSMENT: Acute complicated cystitis POA Acute dehydration POA Acute kidney injury POA Electrolyte imbalance hyponatremia Na 134 POA Uncontrolled hypertension POA Uncontrolled diabetes mellitus type 2 with hypoglycemia POA Hyperlipidemia POA Depression POA History of appendectomy History of cholecystectomy PLAN: PATIENT IS SEEN AND EXAMINED AT BEDSIDE, CASE DISCUSSED WITH THE RN, NO ACUTE EVENTS OVERNIGHT, PATIENT GETTING SUPPORTIVE CARE WITH IV FLUIDS, IV ANTIBIOTICS AT THE TIME MY VISIT, BP 134/71, AFEBRILE, SATURATING NORMAL ON ROOM AIR. AT THE TIME OF THE MY VISIT SHE IS AWAKE, STATED THAT SHE FEELS WEAK, ALERT ORIENTED X3, DENIES CHEST PAIN, NO SHORTNESS A BREATH, NO NAUSEA, NO VOMITING, NO ABDOMINAL DISCOMFORT. WE WILL CONTINUE ANTIBIOTICS FOR ADDITIONAL 24 HOURS, ANTICIPATE DISCHARGE HOME TOMORROW. SON AT BEDSIDE, UPDATED, ALL QUESTIONS ANSWERED. IN AGREEMENT. NEURO: MINIMIZE CENTRAL ACTING MEDICATIONS POSSIBLE. FALL PRECAUTIONS. WELL LIGHTED ROOM THROUGH THE DAY AND MINIMIZE INTERRUPTIONS THROUGH THE NIGHT TO PREVENT ACUTE DELIRIUM. PULMONARY: SUPPLEMENTAL 02 NEEDED BIPAP NECESSARY, FOR RESPIRATORY DISTRESS TITRATE FIO2 TO KEEP SPO2 > OR = 90% DUONEBS AND CPT NEEDED IS HOURLY WHILE AWAKE FOR PULMONARY HYGIENE PRN OUT OF BED TO CHAIR TOLERATED MAINTAIN ASPIRATION PRECAUTIONS AT ALL TIMES CARDIOVASCULAR: FOLLOW HEMODYNAMICS. VITAL SIGNS PER FACILITY PROTOCOL GI & NUTRITION: CONTINUE NUTRITIONAL SUPPORT ASPIRATIONS PRECAUTIONS PROKINETIC AGENTS AND LAXATIVES NEEDED KIDNEYS & ELECTROLYTES: STRICT MONITORING OF INTAKE AND OUTPUT DAILY WEIGHTS AVOID NEPHROTOXIC AGENTS MONITOR ELECTROLYTES AND REPLACE NEEDED GOAL URINE OUTPUT OF 30ML/HR OR 0.5ML/KG/HR MEDICATIONS TO BE DOSED ACCORDING TO RENAL FUNCTION. AVOID CONTRAST IF POSSIBLE ENDOCRINE: MAINTAIN BLOOD GLUCOSE BETWEEN 100-180 AT ALL TIMES. INSULIN SLIDING SCALE FOR BLOOD GLUCOSE MANAGEMENT HYPOGLYCEMIA AND HYPERGLYCEMIA PROTOCOL IN PLACE INFECTIOUS DISEASE: TREND TEMPERATURE, WBC AND PROCALCITONIN LEVEL FOLLOW CULTURES, DEESCALATE ANTIBIOTICS SOON POSSIBLE. PANCULTURE IF NEW ONSET FEVER HEMATOLOGY & COAGULATION: MONITOR H&H. KEEP HGB > 7 TRANSFUSE 1 UNIT OF PRBC FOR HGB < 7 TRANSFUSE 1 PACK OF PLATELETS OF PLATELETS < 20, 000 WATCH FOR ANY SIGNS AND SYMPTOMS OF BLEEDING SKIN: PRESSURE ULCER PREVENTION PER FACILITY PROTOCOL SPECIALTY MATTRESS NEEDED ORTHO/REHAB CONTINUE PT/OT PRN: MEDICATIONS TYLENOL 650 MG PO EVERY 4 HRS FOR FEVER ZOFRAN 4 MG IV EVERY 6 HRS FOR N/V HYDRALAZINE 5 MG IV EVERY 4 HRS SYSTOLIC PRESSURE > 160 BOWEL REGIMENT: LACTULOSE 20 GM PO BID PRN CONSTIPATION SUPPORTIVE MEASURES: CONTINUE GI AND DVT PROPHYLAXIS DISPOSITION: PENDING IMPROVEMENT IN CLINICAL CONDITION ALL QUESTIONS ANSWERED TIME SPENT: > 35 MIN SHAYLA CARTER MD Jun 01, 2025 13:24
[2025-06-01] MEDS: GABAPENTIN 300 MG CAPSULE PO SCH (13:26)
--- NOTE | 2025-06-01 14:51 | NUR ---
DCP:HOME Pt currently lives at home with her . Pt states that she uses a cane at home to ambulate. Pt does have a provider that assists her 3 hrs a day to assist with all ADLs, home management, and meals. PCP is Dr. Lex Levi and uses [facility] for any RX needs. At [place] pt will want to go home and family can assist with transportation. Addendum: 06/01/25 at 1453 by JOVAN MUIR SS Amended: Links added.
--- NOTE | 2025-06-01 18:20 | NUR ---
SPEECH TRIGGER COMPLETED / DEHYDRATION Pt IS A 70 Y.O. FEMALE ADMITTED SECONDARY TO DREA, DEHYDRATION, UTI, AND HYPONATREMIA. Pt HAS A PAST MEDICAL HISTORY SIGNIFICANT FOR DEPRESSION, DM, HYPERLIPIDEMIA, HTN, APPENDECTOMY, AND CHOLECYSTECTOMY. PATIENT PRESENTED WITH NO PULMONARY INFILTRATES ON MOST RECENT CHEST X-RAY (05/31/2025). Pt CURRENTLY ON HEART HEALTHY DIET (REGULAR TEXTURE AND THIN LIQUIDS). PER NURSE PINZON, Pt TOLERATING DIET WITH NO OVERT S/S OF ASPIRATION. PLEASE REQUEST SPEECH THERAPY SERVICES FOR SKILLED BEDSIDE SWALLOW EVALUATION IF Pt PRESENTS WITH +S/S OF ASPIRATION SUCH COUGH RESPONSE, THROAT CLEAR, OR WET VOCAL QUALITY DURING ORAL INTAKE. ALL QUESTIONS ANSWERED AT THIS TIME. Addendum: 06/02/[address] LAURA RICHEY Amended: Links added.
--- NOTE | 2025-06-01 18:55 | NUR ---
[facility] INTACT SL INTACT PEG FOR TF INTACT VERBAL TELE PHONE REPORT TO MATT LOPEZ FOR TRANSFER GIVEN AWAITING EMS TRANFER Addendum: 06/01/25 at 1857 by ALBERTA DEAN LVN LVN INCORRECT PT
[2025-06-02] VITALS (9 sets, daily range): BP systolic 110–164; BP diastolic 64–80; PULSE 78–85; RESP 16–20; TEMP 97.9–98.7; O2SAT 96–98
[2025-06-02] MEDS: EMPAGLIFLOZIN 25MG TABLET PO SCH (09:46)
[2025-06-02] MEDS: amLODIPine 5 MG TAB PO SCH (09:46)
--- NOTE | 2025-06-02 12:36 | PN ---
[facility] PROGRESS NOTE Date of Service: Jun 02, 2025 Time of Service: 12:35 SUBJECTIVE: 06/01 PATIENT IS SEEN AND EXAMINED AT BEDSIDE, CASE DISCUSSED WITH THE RN, NO ACUTE EVENTS OVERNIGHT, PATIENT GETTING SUPPORTIVE CARE WITH IV FLUIDS, IV ANTIBIOTICS AT THE TIME MY VISIT, BP 134/71, AFEBRILE, SATURATING NORMAL ON ROOM AIR. AT THE TIME OF THE MY VISIT SHE IS AWAKE, STATED THAT SHE FEELS WEAK, ALERT ORIENTED X3, DENIES CHEST PAIN, NO SHORTNESS A BREATH, NO NAUSEA, NO VOMITING, NO ABDOMINAL DISCOMFORT. WE WILL CONTINUE ANTIBIOTICS FOR ADDITIONAL 24 HOURS, ANTICIPATE DISCHARGE HOME TOMORROW. SON AT BEDSIDE, UPDATED, ALL QUESTIONS ANSWERED. IN AGREEMENT. 06/02 patient is seen and examined at bedside, discussed with the RN, no acute events overnight, patient feels weak, getting IV fluids, IV antibiotics at the time my visit, following commands. Results of urine culture greater than [id number] CFU. Final identification pending. We will request PT to evaluate the patient. at bedside, updated, anticipate discharge home in the next 24 hours. REVIEW OF SYSTEMS CONSTITUTIONAL: Denies fevers, chills, or night sweats. No unintentional weight loss reported. Complains of generalized body weakness NEUROLOGICAL: Denies headache, amaurosis fugax, motor weakness, sensory deficit, vertigo/spinning sensation, gait abnormalities, or tremors. ENT: No hearing loss, otalgia, otorrhea, rhinitis, rhinorrhea, hoarseness, or sore throat. CARDIOVASCULAR: Denies any exertional angina, dyspnea on exertion, orthopnea, paroxysmal nocturnal dyspnea, palpitations, life-threatening arrhythmias, claudication. Complains of chest pressure PULMONARY: Denies any cough, phlegm/sputum, hemoptysis, pleuritic chest pain. Complains of shortness of breaths SLEEP: Denies morning headaches, daytime somnolence or napping. Denies difficulty falling asleep, staying asleep, waking from sleep. Denies knowledge of snoring. GASTROINTESTINAL: Denies any type of dysphagia to either liquids or solids. Denies nausea, vomiting, pyrosis, early satiety, abdominal pain, diarrhea, constipation, or changes in stool consistency or caliber. Denies coffee-ground emesis, hematemesis, hematochezia, or melanotic stools. GENITOURINARY: Denies frequency, urgency, nocturia, hematuria or incontinence (Storage/Irritative symptoms.) Low urinary stream, straining to void, urinary intermittency or hesitancy, splitting of the voiding stream, terminal dribbling. ENDOCRINOLOGIC: Denies polyuria, polydipsia, polyphagia or heat/cold intoleran agapito. HEMATOLOGIC: Denies thrombophilia/previous clots, or coagulopathy/bleeding disorders. ONCOLOGIC: Denies personal history of malignancy. DERMATOLOGIC: Denies rashes or pruritus. PSYCHIATRIC: Denies any suicidal or homicidal ideation. Denies hallucinations. PHYSICAL EXAM GENERAL APPEARANCE: The patient is awake, alert, and oriented, in no acute cardiopulmonary distress. NEUROLOGICAL: Cranial nerves II-XII grossly intact. Motor is 5/5 in bilateral upper and lower extremities proximal to distal. No sensory deficits. HEENT: Face is symmetric. Pupils are equal and reactive. Extraocular movements are intact. NECK: Supple. No JVD. No thyromegaly. No submental, submandibular, pre- /postauricular, occipital or supraclavicular lymphadenopathy. CHEST: Normal chest expansion. No Telemetry. LUNGS: Absence of any rales, rhonchi or any wheezing. CARDIOVASCULAR: Regular. S1 and S2 normal. No appreciable rubs, murmurs or gallops. ABDOMEN: Soft, nontender, and nondistended. There is no rebound, voluntary guarding, or rigidity. : Deferred. No Garner. EXTREMITIES: Non-edematous and not cyanotic. No clubbing. Good capillary refill. SKIN: No skin breakdown. Vital Signs (last 8hr) Date Time Temp Pulse Resp B/P (MAP) Pulse Ox O2 Delivery O2 Flow Rate FiO2 06/02/25 08:08 98.8 83 16 122/68 98 Room Air 06/02/25 08:07 98.8 83 16 122/68 Room Air LABS: Laboratory: Test 06/02/25 10:35 06/01/25 03:27 05/31/25 13:39 05/31/25 13:33 Range/Units Whole Blood Glucose 103 70-110 MG/DL White Blood Count 5.5 # 4.8-10.8 K/uL Red Blood Count 4.46 4.00-5.50 MIL/uL Hemoglobin 13.2 12.0-16.0 g/dL Hematocrit 39.1 36-48 % Mean Corpuscular Volume 87.7 79-99 fL Mean Corpuscular Hemoglobin 29.6 27.0-33.0 pg Mean Corpuscular Hemoglobin Concent 33.8 32.0-36.0 g/dL Red Cell Distribution Width 13.2 11.0-15.5 % Platelet Count 291 # 130-400 K/uL Mean Platelet Volume 9.6 7.5-10.5 fL Immature Granulocyte % (Auto) 0.4 0-1 % Neutrophils (%) (Auto) 53.2 40.0-77.0 % Lymphocytes (%) (Auto) 31.2 21.0-51.0 % Monocytes (%) (Auto) 11.4 3.0-13.0 % Eosinophils (%) (Auto) 2.5 0.0-8.0 % Basophils (%) (Auto) 1.3 0.0-5.0 % Neutrophils # (Auto) 2.9 1.8-7.7 K/uL Lymphocytes # (Auto) 1.7 1.0-4.8 K/uL Monocytes # (Auto) 0.6 0.1-1.0 K/uL Eosinophils # (Auto) 0.14 0.00-0.70 K/uL Basophils # (Auto) 0.07 0.00-0.20 K/uL Absolute Immature Granulocyte (auto 0.02 0-1 K/uL Nucleated Red Blood Cells 0.0 0.0-0.19 % Sodium Level 136 136-145 mmol/L Potassium Level 3.8 3.5-5.1 mmol/L Chloride Level 104 101-111 mmol/L Carbon Dioxide Level 20 L 21-32 mmol/L Blood Urea Nitrogen 15 7-18 mg/dL Creatinine 0.8 0.5-1.0 mg/dL Glomerular Filtration Rate Calc 79 >90 mL/min Random Glucose 104 70-105 mg/dL Hemoglobin A1c 7.1 H 4.0-6.0 % Estimated Average Glucose (eAG) 157 H 70-126 mg/dL Lactic Acid Level 1.4 0.8-2.5 mmol/L Total Calcium 7.8 L 8.5-10.1 mg/dL Magnesium Level 1.80 1.80-2.40 mg/dL Total Bilirubin 0.3 0.2-1.0 mg/dL Direct Bilirubin 0.1 0.0-0.3 mg/dL Aspartate Amino Transf (AST/SGOT) 14 10-37 U/L Alanine Aminotransferase (ALT/SGPT) 14 12-78 U/L Alkaline Phosphatase 67 50-136 U/L Ammonia < 10 L 11-32 umol/L Total Creatine Kinase 40 # 21-232 U/L Troponin I High Sensitivity 14.7 4-50 ng/L B-Type Natriuretic Peptide 29 0-100 pg/mL Total Protein 6.5 6.0-8.3 g/dL Albumin 3.0 L 3.5-5.0 g/dL Amylase Level 22 L 25-115 U/L Lipase 17 16-77 U/L Procalcitonin < 0.05 L 0.05-0.5 ng/mL Thyroid Stimulating Hormone (TSH) 1.18 0.36-3.74 uIU/mL Free Thyroxine (T4) Direct 1.17 0.76-1.46 ng/dL Free Triiodothyronine (T3) pg/mL 1.98 L 2.18-3.98 pg/mL Prothrombin Time 10.3 9.6-11.6 SEC Prothromb Time International Ratio 0.97 0.85-1.15 Activated Partial Thromboplast Time 26.9 26.3-35.5 SEC Urine Color LIGHT-YELLOW YELLOW Urine Appearance CLEAR CLEAR Urine pH 5.5 5.0-8.0 Urine Specific [place] 1.017 1.001-1.031 Urine Protein NEGATIVE NEGATIVE mg/dL Urine Glucose (UA) >=1000 H NEGATIVE mg/dL Urine Ketones 40 H NEGATIVE mg/dL Urine Occult Blood NEGATIVE NEGATIVE Urine Nitrate NEGATIVE NEGATIVE Urine Bilirubin NEGATIVE NEGATIVE mg/dL Urine Urobilinogen 0.2 0.2-1.0 mg/dL Urine Leukocyte Esterase 250 H NEGATIVE Keegan/uL Urine RBC 6-10 H 0-1 /HPF Urine WBC 11-25 H 0-1 /HPF Urine Squamous Epithelial Cells FEW 0-2 /HPF Urine Non-Squamous Epithelial Cells 2 0-2 /HPF Urine Bacteria None None Seen /HPF Influenza Type A Antigen Negative For Type A NEGATIVE Influenza Type B Antigen Negative For Type B NEGATIVE SARS-CoV-2, RNA, NAAT NEGATIVE SARS CoV-2 NEGATIVE Current Medications Medications (Trade) Dose Ordered Sig/[place] Route PRN Reason Start Time Stop Time Status Last Admin Dose Admin Acetaminophen (TYLenol 325MG TAB) 650 mg Q4H PRN PO MILD PAIN (1-3) 05/31/25 16:30 06/30/25 16:29 Acetaminophen (TYLenol 325MG TAB) 650 mg Q6H PRN PO MILD PAIN (1-3) 05/31/25 16:30 05/31/25 16:15 DC Acetaminophen (TYLenol 325MG TAB) 650 mg Q6H PRN PO TEMPERATURE GREATER THAN 101.5 05/31/25 16:30 06/30/25 16:29 Al Hydroxide/Mg Hydroxide (MAALox PLUS 30ML) 30 ml Q6H PRN PO INDIGESTION 05/31/25 16:30 06/30/25 16:29 Amlodipine Besylate (NorvASC 5MG TAB) 5 mg DAILY PO 06/02/25 09:00 07/02/25 08:59 06/02/25 09:46 5 MG Buspirone HCl (BUspar) 15 mg TID PO 06/01/25 14:00 07/01/25 13:59 06/02/25 09:45 10 MG Ceftriaxone Sodium (Rocephin 2gm Inj) 2 gm Q24H IVPB 06/01/25 16:30 06/11/25 16:29 06/01/25 16:00 2 GM Dextrose (D50w) 50 ml AD PRN IV HYPOGLYCEMIA PROTOCOL 05/31/25 16:00 06/30/25 15:59 Diphenhydramine HCl (BENAdryl INJ) 25 mg Q6H PRN IV SEVERE ITCHING/RASH 05/31/25 16:30 06/30/25 16:29 Empaglifozin (Jardiance 25mg) 25 mg DAILY PO 06/02/25 09:00 07/02/25 08:59 06/02/25 09:46 25 MG Famotidine (Pepcid 20mg Vial) 20 mg BID PRN IV NAUSEA/VOMITING 05/31/25 16:30 05/31/25 16:15 DC Famotidine (Pepcid 20mg Vial) 20 mg Q24H IV 05/31/25 21:00 06/30/25 20:59 06/01/25 20:17 20 MG Gabapentin (NEURontin 300 MG CAP) 300 mg TID PO 06/01/25 14:00 07/01/25 13:59 06/02/25 09:45 300 MG Glucagon (Glucagon 1mg Kit) 1 mg AD PRN IM HYPOGLYCEMIA PROTOCOL 05/31/25 16:00 06/30/25 15:59 Guaifenesin/ Dextromethorphan (RobiTUSSin DM 200/20MG 10ML) 10 ml Q4H PRN PO COUGH 05/31/25 16:30 06/30/25 16:29 Heparin Sodium (Porcine) (HEParin 5,000 UNIT VIAL) 5,000 unit BID SQ 05/31/25 21:00 06/30/25 20:59 06/02/25 09:42 5,000 UNIT Home Med (Home Medication) DAILY PO 06/02/25 09:00 07/02/25 08:59 Home Med (Home Medication) DAILYBKFST PO 06/02/25 08:00 07/02/25 07:59 Hydralazine HCl (APRESOLine 20MG INJ) 10 mg Q6H PRN IV For:SBP above 160;DBP above 90 05/31/25 16:30 06/30/25 16:29 Hydroxyzine HCl (ATArax 25MG TAB) 25 mg TIDP PRN PO ANXIETY 06/01/25 10:30 07/01/25 10:29 06/01/25 17:00 25 MG Ibuprofen (moTRIN) 800 mg Q8H PRN PO MODERATE PAIN (4-6) 05/31/25 16:30 06/30/25 16:29 Insulin Human Regular (humuLIN R 100 UNIT/ML 3ML) INSULIN SLIDING SCAL... ACHS SQ 05/31/25 16:30 06/30/25 16:29 Ketorolac Tromethamine (toRADol) 15 mg Q8H PRN IV MODERATE PAIN (4-6) IF NPO 05/31/25 16:30 06/02/25 09:23 DC Lactulose (Constulose 20gm/ 30ml Udcup) 20 gm BID PRN PO CONSTIPATION 05/31/25 16:30 06/30/25 16:29 Levothyroxine Sodium (SYNTHroid 25MCG TAB) 25 mcg SYN PO 06/02/25 06:30 07/02/25 06:29 Lorazepam (AtiVAN) 0.5 mg [id number] PRN PO ANXIETY 06/01/25 10:30 07/01/25 10:29 06/01/25 18:31 0.5 MG Losartan Potassium (CozAAR 50 mg TAB) 50 mg DAILY PO 06/02/25 09:00 07/02/25 08:59 06/02/25 09:45 50 MG Magnesium Sulfate 50 ml @ 0 mls/hr PROTOCOL PRN IV other 05/31/25 16:00 06/30/25 15:59 06/01/25 05:34 25 MLS/HR Metoprolol Succinate (TopROL XL) 50 mg DAILY PO 06/02/25 09:00 07/02/25 08:59 06/02/25 09:45 50 MG Miscellaneous Medication (Alprazolam ) 0.25 mg TIDP PRN PO ANXIETY 06/01/25 10:30 06/01/25 10:59 DC Morphine Sulfate (morPHINE 2MG SYG) 1 mg Q4H PRN IVP SEVERE PAIN (7-10) IF NPO 05/31/25 16:30 06/07/25 16:29 Nitroglycerin (Nitrostat) 0.4 mg PROTOCOL PRN SL CHEST PAIN 05/31/25 16:30 06/30/25 16:29 Ondansetron HCl (zoFRAN 4MG INJ) 4 mg Q6H PRN IV NAUSEA/VOMITING 05/31/25 16:30 06/30/25 16:29 Oxycodone/ Acetaminophen (perCOCET) 1 tab Q6H PRN PO SEVERE PAIN (7-10) 05/31/25 16:30 06/02/25 09:23 DC 06/01/25 09:12 1 TAB Potassium Chloride 100 ml @ 100 mls/hr AD PRN IV POTASSIUM PROTOCOL 05/31/25 16:00 06/30/25 15:59 Potassium Chloride (K-Dur/Klor-Con 20meq) 20 meq AD PRN PO POTASSIUM PROTOCOL 05/31/25 16:00 06/30/25 15:59 06/01/25 20:18 20 MEQ Potassium Chloride (KCl 10% Elixir 20meq/15ml) 20 meq AD PRN PO POTASSIUM PROTOCOL 05/31/25 16:00 06/30/25 15:59 Sodium Chloride 1,000 ml @ 100 mls/hr Q10H IV 05/31/25 16:30 06/01/25 12:52 DC 05/31/25 16:57 100 MLS/HR Zolpidem Tartrate (AmbIEN) 5 mg HS PRN PO INSOMNIA 05/31/25 16:30 06/30/25 16:29 06/01/25 20:17 5 MG DIAGNOSTICS / RADIOLOGY: [ ] ASSESSMENT: Acute complicated cystitis POA Acute dehydration POA Acute kidney injury POA Electrolyte imbalance hyponatremia Na 134 POA Uncontrolled hypertension POA Uncontrolled diabetes mellitus type 2 with hypoglycemia POA Hyperlipidemia POA Depression POA History of appendectomy History of cholecystectomy PLAN: patient is seen and examined at bedside, discussed with the RN, no acute events overnight, patient feels weak, getting IV fluids, IV antibiotics at the time my visit, following commands. Results of urine culture greater than [id number] CFU. Final identification pending. We will request PT to evaluate the patient. at bedside, updated, anticipate discharge home in the next 24 hours. NEURO: MINIMIZE CENTRAL ACTING MEDICATIONS POSSIBLE. FALL PRECAUTIONS. WELL LIGHTED ROOM THROUGH THE DAY AND MINIMIZE INTERRUPTIONS THROUGH THE NIGHT TO PREVENT ACUTE DELIRIUM. PULMONARY: SUPPLEMENTAL 02 NEEDED BIPAP NECESSARY, FOR RESPIRATORY DISTRESS TITRATE FIO2 TO KEEP SPO2 > OR = 90% DUONEBS AND CPT NEEDED IS HOURLY WHILE AWAKE FOR PULMONARY HYGIENE PRN OUT OF BED TO CHAIR TOLERATED MAINTAIN ASPIRATION PRECAUTIONS AT ALL TIMES CARDIOVASCULAR: FOLLOW HEMODYNAMICS. VITAL SIGNS PER FACILITY PROTOCOL GI & NUTRITION: CONTINUE NUTRITIONAL SUPPORT ASPIRATIONS PRECAUTIONS PROKINETIC AGENTS AND LAXATIVES NEEDED KIDNEYS & ELECTROLYTES: STRICT MONITORING OF INTAKE AND OUTPUT DAILY WEIGHTS AVOID NEPHROTOXIC AGENTS MONITOR ELECTROLYTES AND REPLACE NEEDED GOAL URINE OUTPUT OF 30ML/HR OR 0.5ML/KG/HR MEDICATIONS TO BE DOSED ACCORDING TO RENAL FUNCTION. AVOID CONTRAST IF POSSIBLE ENDOCRINE: MAINTAIN BLOOD GLUCOSE BETWEEN 100-180 AT ALL TIMES. INSULIN SLIDING SCALE FOR BLOOD GLUCOSE MANAGEMENT HYPOGLYCEMIA AND HYPERGLYCEMIA PROTOCOL IN PLACE INFECTIOUS DISEASE: TREND TEMPERATURE, WBC AND PROCALCITONIN LEVEL FOLLOW CULTURES, DEESCALATE ANTIBIOTICS SOON POSSIBLE. PANCULTURE IF NEW ONSET FEVER HEMATOLOGY & COAGULATION: MONITOR H&H. KEEP HGB > 7 TRANSFUSE 1 UNIT OF PRBC FOR HGB < 7 TRANSFUSE 1 PACK OF PLATELETS OF PLATELETS < 20, 000 WATCH FOR ANY SIGNS AND SYMPTOMS OF BLEEDING SKIN: PRESSURE ULCER PREVENTION PER FACILITY PROTOCOL SPECIALTY MATTRESS NEEDED ORTHO/REHAB CONTINUE PT/OT PRN: MEDICATIONS TYLENOL 650 MG PO EVERY 4 HRS FOR FEVER ZOFRAN 4 MG IV EVERY 6 HRS FOR N/V HYDRALAZINE 5 MG IV EVERY 4 HRS SYSTOLIC PRESSURE > 160 BOWEL REGIMENT: LACTULOSE 20 GM PO BID PRN CONSTIPATION SUPPORTIVE MEASURES: CONTINUE GI AND DVT PROPHYLAXIS DISPOSITION: PENDING IMPROVEMENT IN CLINICAL CONDITION ALL QUESTIONS ANSWERED TIME SPENT: > 35 MIN SHAYLA CARTER MD Jun 02, 2025 12:36
[2025-06-03 03:53] VITALS: BP 113/66; PULSE 78; RESP 19; TEMP 98.4
[2025-06-03 03:53] LABS: NUCLEATED RED BLOOD CELLS 0.0 % (0.0-0.19); PLATELET COUNT (AUTO) 318.0 K/uL (130-400); RED BLOOD CELL COUNT(AUTO) 4.61 MIL/uL (4.00-5.50); RED CELL DISTRIBUTION WIDTH 13.4 % (11.0-15.5); WHITE BLOOD COUNT (AUTO) 5.8 K/uL (4.8-10.8)
[2025-06-03 04:09] LABS: ASPARTATE AMINOTRANSFERASE 14.0 U/L (10-37); CREATININE 0.8 mg/dL (0.5-1.0); GLOMERULAR FILTR. RATE CALC 79.0 mL/min (>90); GLUCOSE,RANDOM 109.0 mg/dL (70-105); SODIUM SERUM 135.0 mmol/L (136-145); TOTAL PROTEIN, SERUM 6.9 g/dL (6.0-8.3); UREA NITROGEN, BLOOD 15.0 mg/dL (7-18)
[2025-06-03 07:35] VITALS: BP 117/67; PULSE 77; RESP 18; TEMP 98.4
[2025-06-03 08:00] VITALS: O2SAT 99
[2025-06-03] MEDS ORDERED: AMOX1TAB16 PO (11:32)
[2025-06-03] MEDS: LACTULOSE 20 GM/30 ML UDCUP PO PRN (12:03)
--- NOTE | 2025-06-03 12:25 | NUR ---
Patient discharged. IV REMOVED INTACT. ALL BELONGINGS GATHERED AND TAKEN BY . EDUCATION PROVIDED ON REASON FOR ADMISSION AND MEDS TO DISCONTINUE AND NEW PRESCRIPTION. PATIENT AND SPOUSE VERBALIZED UNDERSTANDING. ALL QUESTIONS AND CONCERNS ANSWERED.
--- NOTE | 2025-06-03 12:58 | DS ---
Discharge Summary Hospital Course Summary: Date of service 06/03/2025 Patient admitted to hospital May 31, 2025 with the following history of the present illness: Patient 70 years old female with a past medical history of depression, diabetes, hyperlipidemia, hypertension, appendectomy, cholecystectomy, who came to emergency department with multiple patient stated that last couple of the ceiling week, overall generalized body weakness she also was complaining of some chest her shortness of breaths and feeling of anxious. Patient did stated that she is a history of the depression. As per family members who has been off the bedside they being seen that all her symptoms has been going for the past several years. Today patient decided to come to the hospital all dose symptoms has been progressively worse] Most recent vital signs temperature 98.1 pulse 97 respiration 20 blood pressure 139/89 patient is on room air satting 100%. Sodium 134 potassium 3.9 CO2 19 BUN 20 creatinine 1.1 GFR four random glucose 159 magnesium 1.9 CK 52 troponin negative x1 BNP 34 COVID negative. Influenza A negative influenza B negative urinalysis positive for leukocytosis Chest x-ray negative HOSPITAL COURSE 06/01 PATIENT IS SEEN AND EXAMINED AT BEDSIDE, CASE DISCUSSED WITH THE RN, NO ACUTE EVENTS OVERNIGHT, PATIENT GETTING SUPPORTIVE CARE WITH IV FLUIDS, IV ANTIBIOTICS AT THE TIME MY VISIT, BP 134/71, AFEBRILE, SATURATING NORMAL ON ROOM AIR. AT THE TIME OF THE MY VISIT SHE IS AWAKE, STATED THAT SHE FEELS WEAK, ALERT ORIENTED X3, DENIES CHEST PAIN, NO SHORTNESS A BREATH, NO NAUSEA, NO VOMITING, NO ABDOMINAL DISCOMFORT. WE WILL CONTINUE ANTIBIOTICS FOR ADDITIONAL 24 HOURS, ANTICIPATE DISCHARGE HOME TOMORROW. SON AT BEDSIDE, UPDATED, ALL QUESTIONS ANSWERED. IN AGREEMENT. 06/02 patient is seen and examined at bedside, discussed with the RN, no acute events overnight, patient feels weak, getting IV fluids, IV antibiotics at the time my visit, following commands. Results of urine culture greater than [id number] CFU. Final identification pending. We will request PT to evaluate the patient. at bedside, updated, anticipate discharge home in the next 24 hours. /05 today the patient is alert oriented x3, hemodynamically stable, afebrile, saturating normal on room air, results of urine culture positive for Enterococcus faecalis sensitive to multiple antibiotics, plan is for the patient to be discharged home today on oral antibiotics to follow up with her PCP as an outpatient and return to hospital if her condition changes. Patient agreed with the plan and understood the information provided. Assessment/Plan: Final diagnosis Acute complicated cystitis POA Acute dehydration POA Acute kidney injury POA Electrolyte imbalance hyponatremia Na 134 POA Uncontrolled hypertension POA Uncontrolled diabetes mellitus type 2 with hypoglycemia POA Hyperlipidemia POA Depression POA History of appendectomy History of cholecystectomy Discharge Instructions: Patient to be discharged home today, to follow up with her PCP as an outpatient and return to the hospital if her condition changes. Patient agreed with plan and understood the information provided. Home Medications: Active Scripts Amoxicillin/Potassium Clav (Amox Tr-K Clv 875-125 mg Tab) 875 Mg-125 Mg Tablet, 1 TAB PO BID for 7 Days, #14 TAB 0 Refills Prov:SHAYLA CARTER MD 06/03/25 Reported Medications Lorazepam (Ativan) 0.5 Mg Tablet, 0.5 MG PO [id number] PRN for ANXIETY, TAB 05/31/25 Hydroxyzine HCl (Hydroxyzine HCl) 25 Mg Tablet, 25 MG PO TIDP PRN for ANXIETY, TAB 05/31/25 Alprazolam (Alprazolam) 0.25 Mg Tab.rapdis, 0.25 MG PO TIDP PRN for ANXIETY, TAB 05/31/25 Gabapentin (Gabapentin) 400 Mg Capsule, 300 MG PO TID, CAP 05/31/25 Buspirone HCl (Buspirone HCl) 15 Mg Tablet, 15 MG PO TID, TAB 05/31/25 Levothyroxine Sodium (Levothyroxine) 25 Mcg Capsule, 25 MCG PO AM, CAP 05/31/25 Finerenone (Kerendia) 20 Mg Tablet, 20 MG PO AD, TAB 05/31/25 Empagliflozin (Jardiance) 25 Mg Tablet, 25 MG PO DAILY, TAB 05/31/25 Omeprazole (Omeprazole) 20 Mg Capsule.dr, 20 MG PO DAILY, CAP 05/31/25 Amlodipine Besylate (Amlodipine Besylate) 5 Mg Tablet, 5 MG PO DAILY, TAB 05/31/25 Calcium Carbonate/Vitamin D3 (Calcium 600 + Vit D3 800 Tab) 600 Mg Calcium-20 Mcg (800 Unit) Tablet, 1 EACH PO DAILYBKFST, TAB 05/31/25 Losartan Potassium (Losartan Potassium) 50 Mg Tablet, 50 MG PO DAILY, TAB 05/31/25 Metoprolol Succinate (Metoprolol Succinate) 50 Mg Tab.er.24h, 50 MG PO DAILY, TAB 05/31/25 Discontinued Reported Medications Nitrofurantoin Macrocrystal (Nitrofurantoin) 100 Mg Capsule, 100 MG PO BID for 10 Days, CAP 05/31/25 Time spent arranging discharge: 31-60 minutes SHAYLA CARTER MD Jun 03, 2025 12:58
== END 2025-06-03 12:30 | disposition home or self-care (01) ==
LOC: EDH 13:22 → UNDOADMOB 16:04 → INTOOBSV 16:04 → EDHIP 16:04 → 4AH 18:08 → EDHIP 18:08 → 4AH 06-03 08:00 → UNDODISOB 06-03 12:30
PROVIDERS: ADMIT Internal Medicine; ATTEND Internal Medicine
DX: N30.00 Acute cystitis without hematuria (principal); I10 Essential (primary) hypertension; F41.9 Anxiety disorder, unspecified; F32.A Depression, unspecified; R07.89 Other chest pain; E11.649 Type 2 diabetes mellitus with hypoglycemia without coma; E78.00 Pure hypercholesterolemia, unspecified; E86.0 Dehydration; E87.1 Hypo-osmolality and hyponatremia; N17.9 Acute kidney failure, unspecified; Z90.49 Acquired absence of other specified parts of digestive tract; Z20.822 Contact with and (suspected) exposure to COVID-19; Z79.899 Other long term (current) drug therapy; Z98.890 Other specified postprocedural states
CPT/HCPCS: 96376 ×3; 96372 ×5; 96375; 99285; 82550 ×2; 83735 ×3; 84484 ×2; 80048; 83880 ×2; 85025 ×2; 85610; 85730; 87040 ×2; 87086 ×3; 87804 ×2; 82948 ×12; 81001; 36415 ×3; 87635; 71045 ×2; 93005; 96365; 96366 ×2; 96367; 83036; 82150; 84443; 82248; 80053 ×2; 82140; 83690; 87186; 84439; 83605; 84481; 97161; 97116; 84145; 85027; J1308 ×3; J3360; J0696 ×3; J1644 ×6; J3475; G0378 ×4; 96374; J0360